=== PATIENT | male | born 1970 | race Two or more races ===

== ENCOUNTER 2018-12-03 09:48 | Emergency (ER) | payer SELFPAY ==
[~2018-12-03] VITALS: Ht 162.6 cm; Wt 76.2 kg
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
[2018-12-03 10:21] VITALS: BP 134/87
== END 2018-12-03 10:22 | disposition home or self-care (01) ==
LOC: ER 09:48
DX: L03.116 Cellulitis of left lower limb (principal); L03.115 Cellulitis of right lower limb; V19.9XXA Pedal cyclist (driver) (passenger) injured in unspecified traffic accident, initial encounter; Y93.89 Activity, other specified; Y92.89 Other specified places as the place of occurrence of the external cause; Y99.8 Other external cause status

== ENCOUNTER 2019-02-13 00:16 | Emergency (ER) | payer OTHER ==
[~2019-02-13] VITALS: Ht 167.6 cm; Wt 77.1 kg
[2019-02-13 00:20] VITALS: BP 145/92
[2019-02-13] MEDS ORDERED: KETOROLAC TROMETHAMINE INJ 30 MG/ML VIAL ONE (00:50)
[2019-02-13] MEDS ORDERED: SULFAMETH/TRIMETH 800/160 MG 1 UDTAB TABLET ONE (00:51)
[2019-02-13] MEDS ORDERED: CEPHALEXIN MONOHYDRATE 500 MG CAPSULE PO ONE ×2 (00:51→01:00)
[2019-02-13] MEDS ORDERED: SULFAMETH/TRIMETH 800/160 MG 1 UDTAB TABLET PO ONE (01:00)
[2019-02-13] MEDS ORDERED: KETOROLAC TROMETHAMINE INJ 60 MG/2 ML VIAL IM ONE (01:00)
== END 2019-02-13 01:11 | disposition home or self-care (01) ==
LOC: ER 00:29
DX: L03.115 Cellulitis of right lower limb (principal); Z86.19 Personal history of other infectious and parasitic diseases
CPT/HCPCS: 96372; 99283; J1885